=== PATIENT | female | born 1975 | race Caucasian/White ===

== ENCOUNTER 2019-10-22 10:52 | Emergency (ER) | payer OTHER ==
[2019-10-22 11:39] VITALS: BP 112/75
--- NOTE | 2019-10-22 12:23 | UC ---
Back Pain HPI - HPI Summary HPI Summary: Patient is a 44-year-old female presenting with right lower back pain 3 weeks. Patient states she was seen here on 10/12/19 with x-rays done and given steroid taper and Flexeril for pain relief. Patient states since then her pain has gotten worse. States the last 3 days has been "excruciating pain" to which she is "on the floor in a ball crying for most of the day." Patient states anterior right thigh is becoming numb. States her right foot feels cold and numb as well. Patient notes the only alleviating factor being lying down in a certain position. States still able to ambulate but with difficulty. Denies bowel or bladder incontinence. Patient states that she tried making a specialist appointment with the referral she was given but when she went on Tuesday they told her they had never heard of her and that she did not have an appointment made. This is WC so the patient is limited due to who will evaluate her. Patient here requesting information on who to follow up with them where to get proper evaluation. - History of Current Complaint Chief Complaint: UCBackPain Stated Complaint: BACK PAIN Hx Obtained From: Patient Pain Intensity: 10 - Allergies/Home Medications Allergies/Adverse Reactions: Allergies Allergy/AdvReac Type Severity Reaction Status Date / Time Penicillins Allergy Rash Verified 10/22/19 11:33 Home Medications: Home Medications Naproxen [Naproxen 500 mg tab] 500 mg PO BID PRN 10/22/19 [History Confirmed ] PMH/Surg Hx/FS Hx/Imm Hx - Surgical History Surgical History: Yes Surgery Procedure, Year, and Place: Hysterectomy 2017 - Family History Known Family History: Positive: Non-Contributory - Social History Alcohol Use: Rare Substance Use Type: None Smoking Status (MU): Light Every Day Tobacco Smoker Type: Cigarettes Amount Used/How Often: less than 10 daily Household Exposure Type: Cigarettes Review of Systems All Other Systems Reviewed And Are Negative: No Constitutional: Positive: Negative Skin: Positive: Negative Respiratory: Positive: Negative Cardiovascular: Positive: Negative Gastrointestinal: Positive: Negative Musculoskeletal: Positive: Arthralgia - R lower back pain, Decreased ROM Neurological: Positive: Paresthesia - R foot, Numbness - R foot Physical Exam - Summary Physical Exam Summary: Vital Signs Reviewed: Yes A+Ox3, Pain distress Eyes: Conjunctiva Clear ENT: Hearing grossly normal Neck: supple Respiratory: Positive: No respiratory distress, No accessory muscle use Cardiovascular: skin color reflect adequate perfusion Musculoskeletal Exam: tenderness to palpation of R lower back extending to R hip and anterior R thigh. subjective decreased sensation of anterior R thigh and inguinal region. subjective decreased strength of R leg flexion/extension. 2 +DP/PT. no erythema or ecchymosis Neurological: Positive: Alert, see above Psychological: Positive: age appropriate behavior Skin: Positive: no rash, no ecchymosis Vital Signs: Initial Vital Signs Temp 98.5 F 10/22/19 11:35 Pulse 85 10/22/19 11:35 Resp 18 10/22/19 11:35 BP 112/75 10/22/19 11:35 Pulse Ox 98 10/22/19 11:35 Back Pain Course/Dx - Course Course Of Treatment: Patient presenting with right lower back pain 3 weeks that she states has worsened over the past 2 days. Reviewed patient's visit from 10/12/19 and radiographs. Patient requested an appointment be made tomorrow for her follow- up that if she could not get in tomorrow she would go to the emergency room after leaving here. I made phone calls to both [facility] sports medicine and Dr. Chang with occupational health, who both stated they would not feel to see her. Sports medicine does not see workman's comp and Dr. Chang does not except back or neck pain. I called neurosurgery, but got the answering service because they were at lunch. I discussed this with the patient who said that she will take the contact information for neurosurgery but that she was going to go to the emergency room when she left here. I stated that this was in her best interests since her pain and symptoms have worsened. Patient stated she would drive herself to the emergency room. Patient stable upon departure. - Differential Dx/Diagnosis Provider Diagnosis: DJD (degenerative joint disease), Scoliosis, Low back pain radiating to right lower extremity Discharge ED - Sign-Out/Discharge Documenting (check all that apply): Patient Departure All imaging exams completed and their final reports reviewed: No Studies - Discharge Plan Condition: Stable Disposition: HOME-RECOMMEND TO ED Patient Education Materials: Back Pain (ED) Forms: *Work Release Referrals: No Primary Care Phys,NOPCP [Primary Care Provider] - Additional Instructions: The provider that evaluated you today thinks that you need additional testing that can be completed the emergency department. It is recommended that you go directly to emergency department for further evaluation. This evaluation included blood work or imaging. This testing will be directed and decided by the provider that evaluates you at the emergency department. If pain becomes worse, you feel lightheaded, you have uncontrolled vomiting, or you have any other concerns while you are being driven to emergency department as recommended to pullover and contact 911. - Billing Disposition and Condition Condition: STABLE Disposition: Home-Recommend to ED
== END 2019-10-22 12:40 | disposition home health service (06) ==
LOC: UCCORT 10:52
DX: M54.5 Low back pain (principal); M41.86 Other forms of scoliosis, lumbar region; M47.896 Other spondylosis, lumbar region; F17.210 Nicotine dependence, cigarettes, uncomplicated; Z88.0 Allergy status to penicillin
CPT/HCPCS: 99212; G0463